=== PATIENT | female | born 1995 | race African-American/Black ===

== ENCOUNTER 2018-11-22 02:05 | Inpatient (IN) ==
[2018-11-22] MEDS ORDERED: ONDANSETRON 4 MG/2 ML VIAL IV PRN (03:31)
[2018-11-22] MEDS ORDERED: BUTORPHANOL 2 MG/ML VIAL IV PRN (03:31)
[2018-11-22 03:37] LABS: Apearance,Urine CLEAR (Clear); Bacteria,Urine Occasional /HPF (Few); Bilirubin,Urine Negative (Negative); Blood, Urine Negative (Negative); Glucose,Urine (UA) Negative (Negative); Ketones,Urine Negative (Negative); Mucus,Urine Occasional /LPF (Occasional); Nitrite,Urine Negative (Negative); Protein,Urine Negative; RBC,Urine <1 /HPF (0-4); Squamous Epithelial Cell,Urine Occasional /HPF (0-10); Urine Color Yellow (Yellow); Urine Specific Gravity 1.013 (1.001-1.035); Urine Urobilinogen < 2.0 EU/DL (0.2-1.0); WBC,Urine 1 /HPF (0-6)
[2018-11-22 04:07] LABS: Basophils % 0.4 % (0.0-0.8); Eosinophils # 0.2 10*3/uL (0.0-0.87); Eosinophils % 2.4 % (0.00-10.9); Hematocrit 38.3 VOL% (35.7-47.0); Hemoglobin 12.3 GM/DL (12.0-16.0); Immature Granulocytes % 0.6 %; Immature Granulocytes Absolute 0.06 #; Lymphocytes # 2.7 10*3/uL (1.4-4.0); Lymphocytes % 26.3 % (21.3-54.2); Mean Corpuscular HGB Conc 32.1 GM/DL (32-36); Mean Corpuscular Volume 100.3 FL (87-102); Mean Platelet Volume 9.8 FL (9.6-12.0); Monocytes % 7.6 % (1.7-12.7); Neutrophils % 62.7 % (38.7-73.9); Platelet Count 226 T/CUMM (130-400); Red Blood Count 3.82 MC/CUMM (3.8-5.5); Red Cell Distribution Width 12.8 % (9.3-17.3); White Blood Count 10.1 T/CUMM (4-12)
[2018-11-22] MEDS ORDERED: AMPICILLIN 2,000 MG VIAL ONE (04:09)
[2018-11-22 04:38] LABS: Calcium 8.9 MG/DL (8.5-10.1); Osmolality,Calculated 274.5 MOS/KG (273-304); Total Protein 7.2 G/DL (6.4-8.3)
[2018-11-22] MEDS: LACTATED RINGERS 1,000 ML IV SCH ×2 (05:17→15:01)
[2018-11-22] MEDS: AMPICILLIN INJ 2,000 MG in SODIUM CHLORIDE 0.9% 100 ML IV SCH ×4 (05:17→22:38)
[2018-11-22] MEDS: ACETAMINOPHEN 325 MG TABLET PO PRN ×2 (14:04→21:46)
[2018-11-23 06:56] LABS: Basophils % 0.4 % (0.0-0.8); Eosinophils # 0.2 10*3/uL (0.0-0.87); Eosinophils % 3.1 % (0.00-10.9); Hematocrit 33.1 VOL% (35.7-47.0); Hemoglobin 10.7 GM/DL (12.0-16.0); Immature Granulocytes % 0.4 %; Immature Granulocytes Absolute 0.03 #; Lymphocytes # 2.3 10*3/uL (1.4-4.0); Lymphocytes % 30.2 % (21.3-54.2); Mean Corpuscular HGB Conc 32.3 GM/DL (32-36); Mean Corpuscular Volume 102.2 FL (87-102); Mean Platelet Volume 9.8 FL (9.6-12.0); Monocytes % 9.5 % (1.7-12.7); Neutrophils % 56.4 % (38.7-73.9); Platelet Count 194 T/CUMM (130-400); Red Blood Count 3.24 MC/CUMM (3.8-5.5); Red Cell Distribution Width 12.9 % (9.3-17.3); White Blood Count 7.7 T/CUMM (4-12)
== END 2018-11-23 10:00 | disposition home or self-care (01) | DRG 833 ==
LOC: N.LDOUT 02:05 → N.LD 02:07
PROVIDERS: ADMIT Obstetrics & Gynecology; ATTEND Obstetrics & Gynecology

== ENCOUNTER 2019-11-14 01:09 | Inpatient (IN) ==
[2019-11-14 01:43] LABS: Apearance,Urine CLEAR (Clear); Bilirubin,Urine Negative (Negative); Blood, Urine Negative (Negative); Glucose,Urine (UA) Negative (Negative); Ketones,Urine Negative (Negative); Nitrite,Urine Negative (Negative); Protein,Urine Negative; Urine Color Colorless (Yellow); Urine Specific Gravity 1.003 (1.001-1.035); Urine Urobilinogen < 2.0 EU/DL (0.2-1.0)
[2019-11-14] MEDS ORDERED: PROMETHAZINE 25 MG/1 ML VIAL IM ONE (02:04)
[2019-11-14] MEDS ORDERED: LACTATED RINGERS 1,000 ML IV ONE (02:04)
[2019-11-14] MEDS: LACTATED RINGERS 1,000 ML IV SCH ×2 (03:49→07:41)
[2019-11-14] MEDS ORDERED: LACTATED RINGERS 250 ML IV ONE (04:04)
[2019-11-14] MEDS ORDERED: BUTORPHANOL 1 MG/ML VIAL IV PRN (04:04)
[2019-11-14] MEDS ORDERED: BUTORPHANOL 2 MG/ML VIAL IV PRN (04:04)
[2019-11-14] MEDS ORDERED: ONDANSETRON 4 MG/2 ML VIAL IV PRN (04:04)
[2019-11-14 04:38] LABS: Basophils % 0.3 % (0.0-0.8); Eosinophils # 0.1 10*3/uL (0.0-0.87); Eosinophils % 1.3 % (0.00-10.9); Hematocrit 30.6 VOL% (35.7-47.0); Hemoglobin 10.2 GM/DL (12.0-16.0); Immature Granulocytes % 0.5 %; Immature Granulocytes Absolute 0.05 #; Lymphocytes # 2.4 10*3/uL (1.4-4.0); Lymphocytes % 22.8 % (21.3-54.2); Mean Corpuscular HGB Conc 33.3 GM/DL (32-36); Mean Platelet Volume 10.4 FL (9.6-12.0); Monocytes % 9.6 % (1.7-12.7); Neutrophils % 65.5 % (38.7-73.9); Platelet Count 174 T/CUMM (130-400); Red Blood Count 3.06 MC/CUMM (3.8-5.5); Red Cell Distribution Width 12.8 % (9.3-17.3); White Blood Count 10.6 T/CUMM (4-12)
[2019-11-14] MEDS ORDERED: CITRIC ACID/SODIUM CITRATE 30 ML UDCUP PO ONE (04:50)
[2019-11-14] MEDS ORDERED: NALOXONE 0.4 MG/ML VIAL IV PRN (04:50)
[2019-11-14] MEDS ORDERED: FAMOTIDINE 20 MG/2 ML VIAL IV ONE (04:50)
[2019-11-14] MEDS ORDERED: fentaNYL 2 MCG/ROPIV 0.2% EPID 100 ML EPIDURAL SCH (05:00)
[2019-11-14] MEDS: ePHEDrine 50 MG/ML AMP IV PRN ×3 (06:02→07:21)
[2019-11-14 07:46] LABS: Apearance,Urine CLEAR (Clear); Bacteria,Urine Occasional /HPF (Few); Bilirubin,Urine Negative (Negative); Blood, Urine Negative (Negative); Glucose,Urine (UA) Negative (Negative); Ketones,Urine Negative (Negative); Nitrite,Urine Negative (Negative); Protein,Urine Negative; RBC,Urine 1 /HPF (0-4); Urine Color Colorless (Yellow); Urine Specific Gravity 1.002 (1.001-1.035); Urine Urobilinogen < 2.0 EU/DL (0.2-1.0)
[2019-11-14] MEDS ORDERED: METHYLERGONOVINE 0.2 MG/1 ML AMP ONE (09:28)
[2019-11-14] MEDS ORDERED: miSOPROStoL 200 MCG TABLET ONE (09:28)
[2019-11-14] MEDS ORDERED: CARBOPROST TROMETHAMINE 250 MCG/ML AMP IM ONE (09:28)
[2019-11-14] MEDS ORDERED: OXYTOCIN/LR 20 UNIT/1,000 ML BAG IV SCH (09:30)
[2019-11-14 10:33] LABS: Cord Venous Blood HCO3 24.3 MMOL/L; Cord Venous Blood PCO2 46.8 MMHG; Cord Venous Blood PO2 41.4
[2019-11-14] MEDS ORDERED: LANOLIN 50% CREAM 0.3 OZ TUBE TOP PRN (13:44)
[2019-11-14] MEDS ORDERED: WITCH HAZEL PADS 100/JAR TOP PRN (13:44)
[2019-11-14] MEDS ORDERED: BISACODYL 10 MG SUPP RECTAL PRN (13:44)
[2019-11-14] MEDS ORDERED: BENZOCAINE 20%/MENTHOL 0.5% SPRAY 56 GM CAN TOP PRN (13:44)
[2019-11-14] MEDS ORDERED: RHO(D) IMMUNE GLOBULIN 300 MCG SYRINGE IM ONE (13:44)
[2019-11-14] MEDS ORDERED: HYDROCORTISONE 2.5% RECTAL CREAM 30 GM TUBE TOP PRN (13:44)
[2019-11-14] MEDS ORDERED: OXYTOCIN/LR 20 UNIT/1,000 ML BAG IV ONE (13:44)
[2019-11-14] MEDS ORDERED: oxyCODONE/ACETAMINOPHEN 5-325 MG TABLET PO PRN (13:44)
[2019-11-14] MEDS ORDERED: ACETAMINOPHEN 325 MG TABLET PO PRN (13:44)
[2019-11-14] MEDS ORDERED: DIPH/TET/ACEL PERT BOOSTER VACCINE 0.5 ML VIAL IM ONE (13:44)
[2019-11-14] MEDS ORDERED: MEASLES/MUMPS/RUBELLA VACCINE 0.5 ML VIAL SUBCUT ONE (13:44)
[2019-11-14] MEDS ORDERED: SIMETHICONE CHEW 80 MG TABLET PO PRN (14:59)
[2019-11-14] MEDS: IBUPROFEN 800 MG TABLET PO PRN (15:00)
[2019-11-14] MEDS: oxyCODONE/ACETAMINOPHEN 5-325 MG TABLET PO PRN (15:55)
[2019-11-14] MEDS: DOCUSATE SODIUM 100 MG CAPSULE PO SCH (21:33)
[2019-11-15 06:34] LABS: Basophils % 0.3 % (0.0-0.8); Eosinophils # 0.2 10*3/uL (0.0-0.87); Eosinophils % 1.6 % (0.00-10.9); Hematocrit 28.6 VOL% (35.7-47.0); Hemoglobin 9.5 GM/DL (12.0-16.0); Immature Granulocytes % 0.7 %; Immature Granulocytes Absolute 0.09 #; Lymphocytes # 2.6 10*3/uL (1.4-4.0); Lymphocytes % 19.3 % (21.3-54.2); Mean Corpuscular HGB Conc 33.2 GM/DL (32-36); Mean Corpuscular Volume 99.7 FL (87-102); Mean Platelet Volume 10.9 FL (9.6-12.0); Neutrophils % 69.1 % (38.7-73.9); Platelet Count 163 T/CUMM (130-400); Red Blood Count 2.87 MC/CUMM (3.8-5.5); Red Cell Distribution Width 13.2 % (9.3-17.3); White Blood Count 13.5 T/CUMM (4-12)
[2019-11-15] MEDS: FERROUS SULFATE 325 MG TABLET PO SCH ×2 (09:40→20:00)
[2019-11-15] MEDS: DOCUSATE SODIUM 100 MG CAPSULE PO SCH ×2 (11:50→20:29)
[2019-11-15] MEDS: IBUPROFEN 800 MG TABLET PO PRN (19:32)
[2019-11-16 07:23] VITALS: BP 91/55
[2019-11-16] MEDS: FERROUS SULFATE 325 MG TABLET PO SCH (08:25)
[2019-11-16] MEDS: oxyCODONE/ACETAMINOPHEN 5-325 MG TABLET PO PRN (08:25)
[2019-11-16] MEDS: DOCUSATE SODIUM 100 MG CAPSULE PO SCH (11:17)
== END 2019-11-16 11:05 | disposition home or self-care (01) | DRG 807 ==
LOC: N.LDOUT 01:09 → N.LD 01:10 → N.OB 13:42
PROVIDERS: ADMIT Obstetrics & Gynecology; ATTEND Obstetrics & Gynecology